=== PATIENT | female | born 1965 | race Caucasian/White ===

== ENCOUNTER → 2023-08-03 17:51 | Outpatient (REF) | payer BC, SELFPAY | LOC: HWWDC 17:51 | PROVIDERS: ATTENDING PHYSICIAN Obstetrics & Gynecology; FAMILY PHYSICIAN Family Medicine | DX: Z12.31 Encounter for screening mammogram for malignant neoplasm of breast (principal) | CPT/HCPCS: 77063; 77067 ==

== ENCOUNTER → 2024-07-06 08:10 | Outpatient (REF) | payer BC, SELFPAY | LOC: RAD 08:10 | PROVIDERS: ATTENDING PHYSICIAN Internal Medicine Rheumatology; FAMILY PHYSICIAN Family Medicine | DX: M81.0 Age-related osteoporosis without current pathological fracture (principal) | CPT/HCPCS: 77080 ==

== ENCOUNTER → 2024-11-02 07:32 | Outpatient (REF) | payer BC, SELFPAY | LOC: PAVMRI 07:32 | PROVIDERS: ATTENDING PHYSICIAN Otolaryngology; FAMILY PHYSICIAN Family Medicine | DX: H90.42 Sensorineural hearing loss, unilateral, left ear, with unrestricted hearing on the contralateral side (principal) | CPT/HCPCS: 70553; A9575 ==

== ENCOUNTER → 2024-12-12 06:52 | Outpatient (REF) | payer BC, SELFPAY | LOC: HWWDC 06:52 | PROVIDERS: ATTENDING PHYSICIAN Obstetrics & Gynecology; FAMILY PHYSICIAN Family Medicine | DX: Z12.31 Encounter for screening mammogram for malignant neoplasm of breast (principal) | CPT/HCPCS: 77063; 77067 ==

== ENCOUNTER → 2024-12-31 07:09 | Outpatient (REF) | payer BC, SELFPAY ==
--- NOTE | 2024-12-31 08:51 | OID.BR.INTR ---
[facility] Breast Navigator - Initial
- -
Date of Contact: 12/31/24
Met with patient. Patient given written information on navigator service available at [facility]. Will follow up as needed per protocol.
== END ==
LOC: WDC 07:09
PROVIDERS: ATTENDING PHYSICIAN Obstetrics & Gynecology; FAMILY PHYSICIAN Family Medicine
DX: R92.1 Mammographic calcification found on diagnostic imaging of breast (principal)
CPT/HCPCS: 19081; 76098; 88305; 88360; A4648

== ENCOUNTER → 2025-01-15 09:52 | Outpatient (REF) | payer BC, SELFPAY | LOC: WDC 09:52 | PROVIDERS: ATTENDING PHYSICIAN Surgery; FAMILY PHYSICIAN Family Medicine | DX: R92.30 Dense breasts, unspecified (principal); Z85.3 Personal history of malignant neoplasm of breast; D05.92 Unspecified type of carcinoma in situ of left breast | CPT/HCPCS: 76641 ==

== ENCOUNTER → 2025-01-28 08:23 | Outpatient (REF) | payer BC, SELFPAY | LOC: WDC 08:23 | PROVIDERS: ATTENDING PHYSICIAN Surgery | DX: D05.92 Unspecified type of carcinoma in situ of left breast (principal) | CPT/HCPCS: 19281; A4648 ==

== ENCOUNTER 2025-01-29 06:16 | Day surgery (SDC) | payer BC, SELFPAY ==
[2025-01-18 11:26] LABS: Hematocrit 40.3 % (37.0-47.0); Hemoglobin 13.1 g/dL (12.0-16.0); Mean Corp Hgb Conc. 32.5 g/dL (33.0-37.0); Mean Corpuscular Volume 89.4 fL (81.0-99.0); Platelet Count 251 10^3/uL (130-400); Red Cell Dist. Width 12.0 % (11.5-14.5)
[2025-01-18 11:47] LABS: ALT (SGPT) 19 U/L (0-35); AST (SGOT) 24 U/L (14-36); Albumin 4.6 g/dl (3.5-5.0); Alkaline Phosphatase 97 U/L (38-126); Blood Urea Nitrogen 13 mg/dl (7-17); Calcium 9.4 mg/dl (8.4-10.2); Carbon Dioxide 28 mmol/L (22-30); Chloride 103 mmol/L (98-107); Glucose 92 mg/dl (70-99); Potassium 4.6 mmol/L (3.5-5.1); Sodium 138 mmol/L (135-145); Total Protein 8.1 g/dl (6.3-8.2); eGFR > 60.00
[2025-01-18 12:03] LABS: Prealbumin (Transthyretin) 25.7 mg/dl (17.6-36.0)
[2025-01-18 12:17] LABS: Vitamin D, 25-OH*** 53.5 ng/mL (30-80)
[2025-01-18 13:58] VITALS: BMI 26.0
[2025-01-29] VITALS (10 sets, daily range): BP systolic 98–151; BP diastolic 58–101; BMI 26.0
[2025-01-29] MEDS: NORMOSOL-R/PLASMALYTE-A 1000 IV (10:12)
[2025-01-29] MEDS: TYLENOL 1000 MG PO (10:12)
[2025-01-29] MEDS: LOVENOX 40 MG SC (10:13)
[2025-01-29] MEDS: DILAUDID 0.25 MG IV (12:09)
--- NOTE | 2025-01-29 14:32 | W.IMMPOSTOP ---
Surgical Immed Post Op Note
-
Primary Surgeon: Hilary
Assisting Surgeon: None
Pre-op Diagnosis: Left breast DCIS
Post-op Diagnosis: Left breast DCIS
Procedure Performed: Left localized lumpectomy
Anesthesia Type: LMA/TIVA
Specimen / Cultures: left lumpectomy and margins
Estimated Blood Loss: 4cc
Complications: None
Operative Findings: Clip, reflector and calcifications in specimen
--- NOTE | 2025-01-29 14:34 | OR.RPT ---
Operative Report
Operative Report
Date of procedure: 01/29/2025
Surgeon: Hilary
Preoperative diagnosis: Left breast DCIS
Postoperative diagnosis: Left breast DCIS's
Procedure: Left localized lumpectomy
The patient is a 59-year-old female who had image detected indeterminate calcifications. She underwent stereotactic core biopsy revealing DCIS. In consultation she decided upon breast conservation surgery and presents today for localized
lumpectomy. On the day prior to the procedure she presented to the breast imaging center where a Chelsea reflector was placed at the appropriate area.
On the day of surgery the patient presented to the same-day surgical services unit. She verified site and procedure and was prepped. DVT and antibiotic prophylaxis were provided
She was transferred to the operating room and in the supine position LMA/TIVA anesthesia were delivered. Left breast was prepped and draped in usual sterile fashion and all team members performed an appropriate timeout procedure.
All tissues were anesthetized with 1% lidocaine plain and a circumareolar incision was made with the blade close to the area of highest Chelsea switchman signal. Skin flaps were elevated in the oncoplastic plane using the cautery. Dissection was carried
down to the Chelsea signal and a wide lumpectomy was performed. Time out of body was noted and the specimen was oriented for the pathologist. Specimen radiography confirmed the presence of clip, reflector, and calcifications within it. Additional
margins were harvested for permanent analysis from the posterior, medial, superior, lateral, inferior, and anterior dimensions and these were oriented as well.
Hemostasis was verified. Wound was irrigated dissection with warm water and hemoclips were placed in resection cavity. Marcaine 0.5% plain was instilled into all tissues and the wound was closed using simple interrupted 3-0 plain on deep
intermediate and subcutaneous tissue and skin was closed with a running subcuticular 4 Monocryl.
Surgical glue and a sterile compressive dressing were applied. All sponge needle and instrument counts were correct and the patient was transferred to the recovery room in stable condition
([id number])
== END 2025-01-29 13:27 | disposition home or self-care (01) ==
LOC: SDS 06:16
PROVIDERS: ATTENDING PHYSICIAN Surgery; FAMILY PHYSICIAN Family Medicine
DX: D05.12 Intraductal carcinoma in situ of left breast (principal)
CPT/HCPCS: 19301; 36415; 76098; 80053; 82306; 84134; 85027; 88305; 88307; 93005; L8000

== ENCOUNTER 2025-02-19 06:20 | Day surgery (SDC) | payer BC, SELFPAY ==
[2025-02-19 08:11] VITALS: BMI 25.9
[2025-02-19 08:12] VITALS: BP 159/89; BMI 25.9
[2025-02-19] MEDS: TYLENOL 1000 MG PO (08:15)
[2025-02-19] MEDS: NORMOSOL-R/PLASMALYTE-A 1000 IV (08:39)
[2025-02-19] MEDS: LOVENOX 40 MG SC (09:12)
--- NOTE | 2025-02-19 10:43 | W.IMMPOSTOP ---
Surgical Immed Post Op Note
-
Primary Surgeon: Hilary
Assisting Surgeon: None
Pre-op Diagnosis: DCIS left breast
Post-op Diagnosis: DCIS left breast
Procedure Performed: Re-excision lumpectomy left breast
Anesthesia Type: TIVA
Specimen / Cultures: Re-excision lumpectomy, margins
Estimated Blood Loss: 4cc
Complications: None
Operative Findings: None
[2025-02-19 10:45] VITALS: BP 74/40
--- NOTE | 2025-02-19 10:45 | OR.RPT ---
Operative Report
Operative Report
Date of procedure: 02/19/2025
Surgeon: Hilary
Preoperative diagnosis: DCIS left breast
Postoperative diagnosis: Same
Procedure: Reexcision lumpectomy left breast
The patient is a 59-year-old female who had an image detected interval change on screening mammography leading to biopsy showing DCIS of the left breast. She underwent a localized lumpectomy and was found to have 2 involved margins superior and
lateral. She presents for reexcision.
On the day of the procedure the patient presented to same-day surgical services. She was prepped and verified site and procedure. DVT and antibiotic prophylaxis were provided and she was taken to the operating room.
In the supine position intravenous sedation was delivered. The left breast was prepped and draped in the usual sterile fashion and all team members performed an appropriate timeout.
All tissues were anesthetized with 1% lidocaine plain. The previous circumareolar incision was entered sharply with the blade and extended using the cautery. A reexcision lumpectomy of the superior lateral resection site was made with the cautery.
Specimen was oriented for the pathologist and sent for permanent analysis. 2 separate margins were sent from the superior and lateral margins which would have been the outermost edges. These were oriented and sent under separate cover.
Hemostasis was maintained. Hemoclips were reapplied to this portion of the resection cavity. All tissues were anesthetized with 1% lidocaine plain. This left a resulting defect of 7 x 6 cm therefore in an oncoplastic fashion a separate
parenchymal incision was made with the cautery. This tissue was advanced to fill in the defect and secured using simple interrupted 3-0 plain suture. Then intermediate and subcutaneous tissues were closed with simple interrupted 3-0 plain and skin
was closed with a running subcuticular 4 Monocryl. Surgical glue and sterile compressive dressing were applied. All sponge needle and instrument counts were correct and the patient was transferred to same-day surgical services to recover
([id number])
[2025-02-19 10:48] VITALS: BP 109/79
== END 2025-02-19 11:15 | disposition home or self-care (01) ==
LOC: SDS 06:20
PROVIDERS: ATTENDING PHYSICIAN Surgery
DX: D05.12 Intraductal carcinoma in situ of left breast (principal); N64.1 Fat necrosis of breast; N61.0 Mastitis without abscess; N60.22 Fibroadenosis of left breast
CPT/HCPCS: 19301; 88305; 88307; 88341; 88342

== ENCOUNTER 2025-06-03 06:43 | Outpatient (RCR) | payer BC, SELFPAY | END 2025-06-03 23:59 | disposition home or self-care (01) | LOC: RPT 06:43 | PROVIDERS: ATTENDING PHYSICIAN Family Medicine Geriatric Medicine | DX: L59.8 Other specified disorders of the skin and subcutaneous tissue related to radiation (principal); Z73.6 Limitation of activities due to disability; L90.5 Scar conditions and fibrosis of skin; N39.41 Urge incontinence; M62.81 Muscle weakness (generalized); M81.0 Age-related osteoporosis without current pathological fracture; Z85.3 Personal history of malignant neoplasm of breast | CPT/HCPCS: 97140; 97162; 97530 ==